=== PATIENT | male | born 1990 | race American Indian/Alaskan Native ===

== ENCOUNTER 2021-11-16 10:08 | Day surgery (SDC) | payer BC ==
[~2021-11-16 10:08] MED LIST: LACTATED RINGERS 1,000 ML IV SCH; MIDAZOLAM 2 MG/2 ML INJ IV NR
[2021-11-16] MEDS ORDERED: HYDROcodone/ACETAMINOPHEN 5-325 MG TAB PO PRN (10:53)
[2021-11-16] MEDS ORDERED: HYDROmorphone 0.5 MG/0.5 ML INJ IV PRN (10:53)
[2021-11-16] MEDS ORDERED: ONDANSETRON 4 MG/2 ML INJ IV PRN (10:53)
--- NOTE | 2021-11-16 10:53 | Anesthesia Consultation ---
Anesthesia Consult and Med Hx Date of service: 11/16/21 - Airway Anesthetic Teeth Evaluation: Good ROM Head & Neck: Adequate Mental/Hyoid Distance: Adequate Mallampati Class: Class II Intubation Access Assessment: Probably Good - Pre-Operative Health Status ASA Pre-Surgery Classification: ASA2 Proposed Anesthetic Plan: General - Pulmonary Hx Smoking: Yes (1/3 PPD) Hx Respiratory Symptoms: No - Cardiovascular System Hx Hypertension: Yes (no meds) - Central Nervous System CVA: No - Endocrine Hx Renal Disease: No Hx Liver Disease: No Hx Insulin Dependent Diabetes: No Hx Non-Insulin Dependent Diabetes: No Hx Thyroid Disease: No - Additional Comments Anesthesia Medical History Comments: No hx anesthetic complications.
--- NOTE | 2021-11-16 10:53 | Anesthesia Day of Surgery ---
Anesthesia Day of Surgery - Day of Surgery Patient Examined: Yes Patient H&P Reviewed: Yes Patient is NPO: Yes
[2021-11-16] MEDS ORDERED: BUPIVACAINE/PF (0.25%) 2.5 MG/ML 30 ML VIAL INFILTRATI ONE ×2 (11:48→13:29)
[2021-11-16] MEDS ORDERED: NEOMY 40 MG/POLYMYXIN B 200,000 UNITS/ML (GU) AMPULE IR ONE (11:49)
[2021-11-16] MEDS ORDERED: HYDROmorphone 1 MG/1 ML INJ ONE (11:57)
[2021-11-16] MEDS ORDERED: propofoL 200 MG/20 ML VIAL IV ONE (11:57)
[2021-11-16] MEDS ORDERED: MIDAZOLAM 2 MG/2 ML INJ ONE (12:46)
[2021-11-16] MEDS ORDERED: KETOROLAC 30 MG/1 ML INJ ONE (13:30)
[2021-11-16] MEDS ORDERED: ONDANSETRON 4 MG/2 ML INJ ONE (13:30)
--- NOTE | 2021-11-16 14:36 | XRay Report ---
2 fluoroscopic images submitted Indication: Intraoperative localization Impression: 2 images of the left hand were submitted for documentation purposes with radiology invol vement. Please refer to the operative note for complete details. Fluoroscopic time: 30 seconds Signer Name: Ryne Hernandez MD Signed: 11/16/2021 2:31 PM Workstation Name: [id number]
[2021-11-16 14:42] VITALS: BP 126/79
--- NOTE | 2021-11-16 15:57 | Post Anesthesia Evaluation ---
- Post Anesthesia Evaluation Patient Participated: Yes Airway Patent: Yes Stable Respiratory Function: Yes Nausea/Vomiting: No Temp > 96.8F: Yes Pain Manageable: Yes Adequeate Hydration: Yes Anesthesia Complications: No
== END 2021-11-16 14:31 | disposition home or self-care (01) ==
LOC: OR 10:08
PROVIDERS: ATTEND Orthopaedic Surgery Hand Surgery
DX: M67.48 Ganglion, other site (principal); F17.210 Nicotine dependence, cigarettes, uncomplicated; G43.909 Migraine, unspecified, not intractable, without status migrainosus; I10 Essential (primary) hypertension; Z72.89 Other problems related to lifestyle; Z88.0 Allergy status to penicillin; Z98.890 Other specified postprocedural states
CPT/HCPCS: 26160; 73140; 88304; J1170; J1885; J2250; J2405; J2704; J3490; J7120; J7502; 88305